=== PATIENT | male | born 1965 | race American Indian/Alaskan Native ===

== ENCOUNTER 2021-01-27 16:31 | Emergency (ER) | payer SELFPAY ==
[2021-01-27] MEDS ORDERED: cloNIDine 0.2 MG TAB PO ONE (16:53)
[2021-01-27] MEDS ORDERED: amLODIPine 5 MG TAB PO ONE (17:00)
--- NOTE | 2021-01-27 17:03 | Emergency Department Report ---
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 Patient states that he went to urgent care today because he was having symptoms of penile discharge for 1 week but when he checked his blood pressure he noticed that it was 230/132 and so sent him here to the ER. He states that he has not been having any dysuria, hematuria, urinary frequency, testicular pain or swelling. He reports no abdominal pain or back pain. He denies any new sexual partners. He admits that he has been out of his medications for his blood pressure since October 2020. He states that he does not currently have a primary care doctor nor does he have any insurance. He denies any chest pain, dizziness, headaches, focal weakness, numbness, tingling or any other symptoms. MD Complaint: Elevated BP -: days(s) (Today ) - Related Data Previous Rx's Medication Instructions Recorded Last Taken Type Amlodipine Besylate [Norvasc] 10 mg PO DAILY #30 tablet 01/27/21 Unknown Rx Doxycycline Hyclate 100 mg PO Q12HR #14 tablet. 01/27/21 Unknown Rx Fluconazole [Diflucan TAB] 150 mg PO QDAY #1 tablet 01/27/21 Unknown Rx Allergies Allergy/AdvReac Type Severity Reaction Status Date / Time No Known Allergies Allergy Unverified 01/27/21 16:32 ED Review of Systems ROS: Stated complaint: HYPERTENSIVE Other details as noted in HPI ED Past Medical Hx - Past Medical History Previous Medical History?: Yes Hx Hypertension: Yes Hx CVA: Yes Hx Heart Attack/AMI: Yes - Surgical History Past Surgical History?: No - Social History Smoking Status: Never Smoker Substance Use Type: None - Medications Home Medications: Home Medications Medication Instructions Recorded Confirmed Last Taken Type Amlodipine Besylate [Norvasc] 10 mg PO DAILY #30 tablet 01/27/21 Unknown Rx Doxycycline Hyclate 100 mg PO Q12HR #14 tablet. 01/27/21 Unknown Rx Fluconazole [Diflucan TAB] 150 mg PO QDAY #1 tablet 01/27/21 Unknown Rx ED Physical Exam - General Limitations: No Limitations General appearance: alert, in no apparent distress - Head Head exam: Present: atraumatic, normocephalic, normal inspection - Eye Eye exam: Present: normal appearance, PERRL, EOMI Pupils: Present: normal accommodation - Respiratory Respiratory exam: Present: normal lung sounds bilaterally. Absent: respiratory distress - Cardiovascular Cardiovascular Exam: Present: regular rate, normal rhythm, normal heart sounds - GI/Abdominal GI/Abdominal exam: Present: soft. Absent: distended, tenderness, guarding - Neurological Exam Neurological exam: Present: alert, oriented X3, CN II-XII intact, normal gait - Psychiatric Psychiatric exam: Present: normal affect, normal mood - Skin Skin exam: Present: intact ED Course Vital Signs 01/27/21 01/27/21 01/27/21 16:32 17:05 17:06 Temperature 98.7 F Pulse Rate 95 H 90 90 Respiratory 18 Rate Blood Pressure 184/127 192/118 192/118 Blood Pressure [Left] O2 Sat by Pulse 98 Oximetry 01/27/21 01/27/21 01/27/21 17:15 17:31 17:34 Temperature Pulse Rate 81 78 83 Respiratory 17 18 18 Rate Blood Pressure 157/105 Blood Pressure 166/101 157/105 [Left] O2 Sat by Pulse 93 95 95 Oximetry 01/27/21 01/27/21 18:15 18:29 Temperature Pulse Rate 85 94 H Respiratory 17 Rate Blood Pressure Blood Pressure 159/90 141/104 [Left] O2 Sat by Pulse 96 Oximetry ED Medical Decision Making - Radiology Data Radiology results: report reviewed - Medical Decision Making Patient currently resting comfortably. His blood pressure have improved with meds. Urinalysis suggest UTI, also concerning for yeast infection. GC is pending. Patient treated prophylactically with Rocephin for possible gonorrhea. He will be started on doxycycline and also Diflucan. Patient will also be started on Norvasc for his blood pressure. Patient is not toxic, he is not ill- appearing, he appears well-hydrated and is not in acute distress. He is awake alert oriented and 3 and neurologically intact. No indication for any further work-up at this time. Discussed with patient importance of following up with a primary care doctor to continue monitoring his blood pressure. Also discussed UTI treatment and STI treatment with patient. Patient expressed understanding of instructions and agree with plan. Patient was stable at time of discharge. Critical care attestation.: If time is entered above; I have spent that time in minutes in the direct care of this critically ill patient, excluding procedure time. ED Disposition Clinical Impression: UTI (urinary tract infection), Penile discharge, Uncontrolled hypertension, Noncompliance with medication regimen, Yeast cystitis Disposition: TO HOME OR SELFCARE Is pt being admited?: No Does the pt Need Aspirin: No Condition: Stable Instructions: Urinary Tract Infection, Adult, [id number], Urethritis, Adult, Hypertension, Adult, Hypertension (ED) Additional Instructions: Take the doxycycline as prescribed and take it to completion. Take on diflucan now and then another one after you complete the doxycycline. Take the Norvasc daily for your blood pressure. I recommend no sexual contact for the next 7 days. Your partner will need to get tested and treated as well. Follow-up with the primary care doctor listed on your discharge instruction for continued monitoring of your blood pressure. Return to the ER if your symptoms changes or worsens in any way. Prescriptions: Fluconazole [Diflucan TAB] 150 mg PO QDAY #1 tablet Doxycycline Hyclate 100 mg PO Q12HR #14 tablet. Amlodipine Besylate [Norvasc] 10 mg PO DAILY #30 tablet Referrals: RACHAEL CALVILLO MD [Staff Physician] - 3-5 Days Time of Disposition: 18:39
[2021-01-27] MEDS ORDERED: LIDOCAINE-MPF (1%) 10 MG/1 ML VIAL 5 ML INFILTRATI ONE (18:21)
[2021-01-27 18:26] LABS: Bilirubin,Urine NEG (Negative); Blood,Urine SM (Negative); Color,Urine Yellow (Yellow); Mucus,Urine 1+ /HPF
[2021-01-27 18:30] VITALS: BP 141/104
== END 2021-01-27 18:55 | disposition home or self-care (01) ==
LOC: ED 16:31
DX: N39.0 Urinary tract infection, site not specified (principal); R36.9 Urethral discharge, unspecified; I10 Essential (primary) hypertension; I25.2 Old myocardial infarction; Z91.14 Patient's other noncompliance with medication regimen; Z86.73 Personal history of transient ischemic attack (TIA), and cerebral infarction without residual deficits; Z79.899 Other long term (current) drug therapy
CPT/HCPCS: 81001; 87086; 96372; 99283; J0696